=== PATIENT | male | born 2000 | race African-American/Black ===

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

== ENCOUNTER 2022-10-20 05:50 | Emergency (ER) | payer MEDICAID, OTHER ==
[2022-10-20] MEDS ORDERED: LORazepam 2 MG/ML SYR.(CARPUJECT) ONE (06:20)
[2022-10-20] MEDS ORDERED: Lorazepam 1 MG TAB ONE (06:39)
== END 2022-10-20 07:32 | disposition home or self-care (01) ==
LOC: ERS 05:50
DX: F41.0 Panic disorder [episodic paroxysmal anxiety] (principal); Z77.22 Contact with and (suspected) exposure to environmental tobacco smoke (acute) (chronic)
CPT/HCPCS: 93005; 96374; J2060

== ENCOUNTER 2022-10-21 15:49 | Emergency (ER) | payer OTHER | END 2022-10-21 18:30 | disposition home or self-care (01) | LOC: ERS 15:49 | DX: R07.9 Chest pain, unspecified (principal) | CPT/HCPCS: 71045; 93005 ==